=== PATIENT | female | born 1965 | race Caucasian/White ===

== ENCOUNTER → 2021-09-06 11:15 | Outpatient (BNVA) | payer MEDICARE, SELFPAY | PROVIDERS: Visit Provider Nurse Practitioner Family | DX: R07.9 Chest pain, unspecified (principal); H00.019 Hordeolum externum unspecified eye, unspecified eyelid; F17.200 Nicotine dependence, unspecified, uncomplicated | CPT/HCPCS: 80053; 84484; 85025; 87635 ==

== ENCOUNTER 2021-10-21 07:38 | Emergency (ER) | payer MEDICARE, SELFPAY ==
[2021-10-21 07:49] VITALS: BP 132/97; PULSE 82; RESP 16; TEMP 36.9; O2SAT 96; BMI 20.2
--- NOTE | 2021-10-21 07:52 | ECG_ITS ---
[facility] Test Date: 2021-10-21 Pat Name: Nan Harris Department: Room: Gender: Female Director Of Rooms: : 1965 Requested By: Ahsan Schmidt Order Number: [id number] Jarad MD: Jasbir Gonzáles M.D. Measurements Intervals Davidson Rate: P: PA: QRS: QRSD: T: QT: QTc: Interpretive Statements Sinus rhythm Right ventricular conduction delay Poor R wave progression ATYPICAL ECG WARNING: DATA QUALITY MAY AFFECT INTERPRETATION No previous ECG available for comparison Electronically Signed On 10-21-2021 8:46:05 CDT by Jasbir Gonzáles M.D. [id number]
--- NOTE | 2021-10-21 07:52 | XRR_ITS ---
PROCEDURE INFORMATION: Exam: XR Chest Exam date and time: 10/21/2021 7:59 AM Age: 56 years old Clinical indication: Injury or trauma; Fall; Blunt trauma (contusions or hematomas); Additional info: Syncope TECHNIQUE: Imaging protocol: Radiologic exam of the chest. Views: 1 view. COMPARISON: No relevant prior studies available. FINDINGS: Lungs: No focal airspace disease. Pleural spaces: Unremarkable. No pleural effusion. No pneumothorax. Heart/Mediastinum: Cardiomediastinal silhouette is within normal limits. Bones/joints: Unremarkable. XR/XR chest 1V portable [id number] IMPRESSION: No acute cardiopulmonary abnormality.
--- NOTE | 2021-10-21 07:58 | W.ED.FALL ---
HPI - Fall General: Chief Complaint: Fall Stated Complaint: passing out episode, neck & shoulder pain Time Seen by Provider: 10/21/21 07:44 Source: patient Mode of arrival: ambulatory Limitations: no limitations History of Present Illness: 56-year-old female presents emergency room complaining of falling. She fell last night she unsure exactly what happened she was confused when she first woke up she complaining of neck pain as well as pain in her right shoulder and head she had episode of nausea vomiting due to the pain. She did come here yesterday but evidently had a significant panic attack and up leaving without being seen. She has a history of seizures she stopped taking all her seizure medications due to side effects. He denies any alcohol use. MD complaint: fall Fall from: standing Fall witnessed: no Place fall occurred: home Loss of consciousness: Yes Prolonged down time: unclear Symptoms prior to fall: none Location of injury: neck Location of injury - extremities: Right: shoulder Severity: moderate Quality: sharp Associated symptoms-after fall: Denies abdominal pain, chest pain, confusion, difficulty walking, headache(s), hematuria, lightheadedness, neck pain, numbness, short of breath, vertigo, weakness or other Review of Systems Const: Denies: fever(s), chills, body aches, change in appetite, fatigue or malaise ENMT: Denies: throat pain, ear or mastoid pain, nasal discharge or nasal congestion Card: Denies: chest pain, palpitations or lightheadedness Resp: Denies: dyspnea, productive cough or non-productive cough GI: Denies: abdominal pain, nausea or vomiting : Denies: hematuria Musc: Reports: joint pain; Denies: neck pain Skin/Breast: Denies: rash or pruritus Neuro: Denies: headache(s), difficulty walking, vertigo or confusion PFSH ED PFSH: Medical History (Updated 10/21/21 @ 16:29 by Ahsan Valverde DO) Seizure Surgical History Hx of appendectomy Hx of brain surgery Hx of knee surgery right knee Social History Smoking and tobacco status: current every day smoker Second hand smoke exposure: No Smoking risk assessment/counseling performed?: Yes Alcohol intake: never Desire information about alcohol rehabilitation?: No Counseling given: No Desire information about substance/drug rehabilitation?: No Counseling given: No Adopted: No Caregiver/support person: No Lives independently: Yes Household members: none Housing: House Marital status: Single Number of children: 2 Highest education level completed: Some College, No Degree service: No Current occupational status: employed History of recent travel: No Physical Exam Const: COMMON NORMALS: no acute distress GENERAL APPEARANCE: cooperative and comfortable ORIENTATION/CONSCIOUSNESS: Yes awake, Yes oriented to person, Yes oriented to place and Yes oriented to time HENMT: COMMON NORMALS: normocephalic, atraumatic and hearing grossly normal bilaterally HEAD & SCALP: normocephalic and atraumatic Neck/C-Spine: COMMON NORMALS: no JVD Resp: COMMON NORMALS: normal respiratory effort, No retractions, No use of accessory muscles and clear to auscultation bilaterally AUSCULTATION: clear to auscultation bilaterally Cardio: COMMON NORMALS: no JVD, regular rate, regular rhythm and No murmurs present (Cardio) RATE: regular rate RHYTHM: regular rhythm GI: COMMON NORMALS: Soft to palpation and No hepatosplenomegaly present AUSCULTATION: Yes normoactive bowel sounds PALPATION: Yes Soft to palpation, No Tenderness to palpation present (GI), No Guarding due to palpation present (GI) and Yes No hepatosplenomegaly present Extremity: COMMON NORMALS: normal to inspection, capillary refill normal, no clubbing, cyanosis or edema, no calf tenderness and no pedal edema Neuro: SENSORIUM/ORIENTATION: Yes oriented to person, Yes oriented to place and Yes oriented to time Skin: COMMON NORMALS: no rashes or lesions noted GENERAL SKIN EXAM: no rashes or lesions noted Course Vital Signs: Vital signs: Vital Signs Temperature 98.5 F 10/21/21 07:49 Pulse Rate 80 10/21/21 10:29 Respiratory Rate 15 10/21/21 08:24 Blood Pressure 139/76 10/21/21 10:29 Pulse Oximetry 97 10/21/21 10:29 MDM - Fall Medical Decision Making Patient has a right distal clavicle clavicle fracture I also suspect she may have had a seizure CPK is up she did not sound like she did prolonged downtime and immediately after she was somewhat confused I like to start her on Keppra. Sis concerned she had side effects from previous antiseizure medications does not want to start anything. She will be scheduled for Ortho for follow-up of the clavicle fracture, and the sleep deprived EEG and then follow-up with neurology return if has further problems. Medical Records I reviewed the patient's medical records. Lab Data I reviewed the patient's lab results. : 10/21/21 08:38 10/21/21 08:38 Radiology Impressions Chest X-Ray 10/21/21 07:52 IMPRESSION: No acute cardiopulmonary abnormality. Cervical Spine X-Ray 10/21/21 07:59 IMPRESSION: 1. No acute osseous findings. 2. Moderate to advanced degenerative disc disease in the mid to lower cervical spine. Shoulder X-Ray 10/21/21 07:59 IMPRESSION: Acute nondisplaced fracture of the distal right clavicle corresponding to the region of the coracoclavicular ligament. Cervical Spine CT 10/21/21 08:24 IMPRESSION: 1. No acute fracture or malalignment. 2. Degenerative changes as detailed above. Laboratory Results WBC 9.1 10^3/uL (4.0-10.0) 10/21/21 08:38 RBC 5.03 10^6/uL (4.1-5.3) 10/21/21 08:38 Hgb 15.3 g/dL (11.5-15.3) 10/21/21 08:38 Hct 45.1 % (37.0-47.0) 10/21/21 08:38 MCV 89.7 fl (81-99) 10/21/21 08:38 MCH 30.4 pg (28.0-34.0) 10/21/21 08:38 MCHC 33.9 g/dL (30.0-36.0) 10/21/21 08:38 RDW 13.1 % (12.1-15.1) 10/21/21 08:38 Plt Count 168 10^3/cmm (130-400) 10/21/21 08:38 MPV 12.4 fL (7.4-10.4) H 10/21/21 08:38 Neut % (Auto) 76.4 % 10/21/21 08:38 Lymph % (Auto) 15.5 % 10/21/21 08:38 [place] % (Auto) 5.7 % 10/21/21 08:38 Eos % (Auto) 0.9 % 10/21/21 08:38 Baso % (Auto) 1.1 % 10/21/21 08:38 Neut # (Auto) 6.95 10^3/uL (1.8-7.7) 10/21/21 08:38 Lymph # (Auto) 1.4 10^3/uL (0.8-4.8) 10/21/21 08:38 [place] # (Auto) 0.5 10^3/uL (0.2-0.9) 10/21/21 08:38 Eos # (Auto) 0.1 10^3/uL (0.0-0.8) 10/21/21 08:38 Baso # (Auto) 0.1 10^3/uL (0.0-0.1) 10/21/21 08:38 Nucleated RBC % (auto) 0 % 10/21/21 08:38 Nucleated RBCs # 0.0 /100WBC 10/21/21 08:38 Sodium 139 mmol/L (136-145) 10/21/21 08:38 Potassium 4.0 mmol/L (3.5-5.1) 10/21/21 08:38 Chloride 100 mmol/L (98-107) 10/21/21 08:38 Carbon Dioxide 25 mmol/L (22-29) 10/21/21 08:38 Anion Gap 18.0 (5-19) 10/21/21 08:38 BUN 9 mg/dL (6-20) 10/21/21 08:38 Creatinine 0.6 mg/dL (0.5-0.9) 10/21/21 08:38 GFR Calculation 103.4 mL/min (90-130) 10/21/21 08:38 Glucose 93 mg/dL (65-115) 10/21/21 08:38 Calculated Osmolality 286 mOsm/kg (285-295) 10/21/21 08:38 Calcium 9.2 mg/dL (8.5-10.5) 10/21/21 08:38 Total Bilirubin 0.3 mg/dL (0.15-1.2) 10/21/21 08:38 AST 26 U/L (0-32) 10/21/21 08:38 ALT 13 U/L (0-33) 10/21/21 08:38 Alkaline Phosphatase 104 IU/L (35-105) 10/21/21 08:38 Creatine Kinase 478 U/L (26-192) H* 10/21/21 08:38 CK-MB (CK-2) 9.0 ng/mL (0-5.34) H 10/21/21 08:38 CK-MB (CK-2) Rel Index 1.8 % (0.0-10.4) 10/21/21 08:38 Troponin T Baseline 6 ng/L (0-10) 10/21/21 08:38 Troponin T 120 Minute 6.00 ng/L (0-10) 10/21/21 09:56 Delta Troponin T 0 ABS# (0-10) 10/21/21 09:56 Total Protein 7.4 g/dL (6.6-8.7) 10/21/21 08:38 Albumin 4.7 g/dL (3.5-5.2) 10/21/21 08:38 Globulin 2.7 g/dL (1.3-4.6) 10/21/21 08:38 Urine Color Yellow (Yellow) 10/21/21 09:12 Urine Appearance Clear (CLEAR) 10/21/21 09:12 Urine pH 6 (5-7) 10/21/21 09:12 Ur Specific [place] 1.020 (1.005-1.030) 10/21/21 09:12 Urine Protein Neg (Negative) 10/21/21 09:12 Urine Glucose (UA) Norm (Normal) 10/21/21 09:12 Urine Ketones Negative (Negative) 10/21/21 09:12 Urine Blood 2+ (Negative) H 10/21/21 09:12 Urine Nitrate Negative (Negative) 10/21/21 09:12 Urine Bilirubin Neg (Negative) 10/21/21 09:12 Urine Urobilinogen Norm mg/dL (Negative) 10/21/21 09:12 Ur Leukocyte Esterase 1+ (Negative) H 10/21/21 09:12 Urine RBC 0-4 /hpf (0-2) H 10/21/21 09:12 Urine WBC 0-4 /hpf (0-5) H 10/21/21 09:12 Ur Squamous Epith Cells 0-4 /hpf (0-5) H 10/21/21 09:12 Amorphous Sediment Not Reportable 10/21/21 09:12 Urine Bacteria Trace /hpf (NONE) 10/21/21 09:12 Discharge Plan Discharge Patient Disposition: Home Clinical Impression: Right clavicle fracture, Seizure, History of closed head injury Condition: Stable Prescriptions: New hydrocodone-acetaminophen 5-325 mg tablet 1 tab PO Q6H PRN (Reason: pain) Qty: 10 0RF No Action cyclobenzaprine 10 mg tablet 10 mg PO TID PRN (Reason: muscle spasm) Qty: 9 0RF prednisone 20 mg tablet 20 mg PO BID Qty: 6 0RF erythromycin 5 mg/gram (0.5 %) ointment 0.5 inch ophthalmic (eye) TID Qty: 1 0RF nitroglycerin 0.4 mg tablet, sublingual 0.4 mg sublingual Q5M PRN (Reason: chest pain) Qty: 30 2RF Rx Instructions: do not exceed 3 doses per episode Discharge Orders: Discharge ED (Routine); Ordered 10/21/21 Ordered By: Ahsan Valverde Referrals: Vazquez Olmedo, [facility] [Primary Care Provider] - Discharge Activity: Increase activity as tolerated Patient Instructions: Opioid Safety Activity Restrictions/Additional Instructions: No use of the right arm use the sling until released by orthopedics. liquor establishment manager will make arrangements for you to have an outpatient sleep deprived EEG as well as consultation with orthopedics and neurology. Return to the emergency room if you have any further problems or recurrent seizures. Coding Level of Care Code ED Intermediate Frame Tender for Rafal Butcher
--- NOTE | 2021-10-21 07:59 | XRR_ITS ---
PROCEDURE INFORMATION: Exam: XR Right Shoulder Exam date and time: 10/21/2021 8:04 AM Age: 56 years old Clinical indication: Injury or trauma; Fall; Blunt trauma (contusions or hematomas); Shoulder; Right TECHNIQUE: Imaging protocol: Radiologic exam of the Right shoulder. Views: 2 or more views. COMPARISON: CR XR chest 1V portable [id number] 10/21/2021 7:59 AM FINDINGS: Bones/joints: Acute nondisplaced fracture of the distal right clavicle corresponding to the region of the coracoclavicular ligament. The acromioclavicular and coracoclavicular intervals are maintained. Mild acromioclavicular and glenohumeral joint degenerative changes. Osteopenia. Soft tissues: Normal. XR/XR shoulder RT min 2V* [id number] IMPRESSION: Acute nondisplaced fracture of the distal right clavicle corresponding to the region of the coracoclavicular ligament.
--- NOTE | 2021-10-21 07:59 | XRR_ITS ---
PROCEDURE INFORMATION: Exam: XR Cervical Spine Exam date and time: 10/21/2021 8:04 AM Age: 56 years old Clinical indication: Injury or trauma; Fall; Blunt trauma TECHNIQUE: Imaging protocol: Radiologic exam of the cervical spine. Views: 2 or 3 views. COMPARISON: CR XR chest 1V portable [id number] 10/21/2021 7:59 AM FINDINGS: Bones/joints: No acute fracture is visualized. Moderate to advanced degenerative disc disease at C3-C4, C4-C5 and C5-C6. Trace anterolisthesis of C2 on C3 is favored degenerative. Trace retrolisthesis of C4 on C5 is also favored degenerative. Soft tissues: Unremarkable. XR/XR cervical spine 3V* [id number] IMPRESSION: 1. No acute osseous findings. 2. Moderate to advanced degenerative disc disease in the mid to lower cervical spine.
[2021-10-21 08:24] VITALS: BP 133/79; PULSE 79; RESP 15; O2SAT 97
--- NOTE | 2021-10-21 08:24 | CTR_ITS ---
PROCEDURE INFORMATION: Exam: CT Cervical Spine Without Contrast Exam date and time: 10/21/2021 8:43 AM Age: 56 years old Clinical indication: Injury or trauma; Fall; Blunt trauma; Additional info: Abnormal cervical spine xray after fall TECHNIQUE: Imaging protocol: Computed tomography of the cervical spine without contrast. Radiation optimization: All CT scans at this facility use at least one of these dose optimization techniques: automated exposure control; mA and/or kV adjustment per patient size (includes targeted exams where dose is matched to clinical indication); or iterative reconstruction. COMPARISON: CR XR cervical spine 3V* [id number] 10/21/2021 8:04 AM RADIATION DOSE METRICS: Total DLP (mGy-cm): 395.33 FINDINGS: Bones/joints: No acute fracture. Normal alignment. Discs/Spinal canal/Neural foramina: Uncovertebral spurring and facet hypertrophy contribute to severe neural foraminal stenosis at C4-C5 bilaterally, C5-C6 on the right, and C6-C7 bilaterally. There is at least mild spinal canal stenosis at C3-C4, C4-C5, C5-C6 and C6-C7. Lungs: Lung apices are normal. Soft tissues: Unremarkable. CT/CT cervical spin wo con* [id number] IMPRESSION: 1. No acute fracture or malalignment. 2. Degenerative changes as detailed above.
[2021-10-21 08:43] LABS: Basophils # 0.1 10^3/uL (0.0-0.1); Basophils % 1.1 %; Eosinophils # 0.1 10^3/uL (0.0-0.8); Eosinophils % 0.9 %; Hematocrit 45.1 % (37.0-47.0); Hemoglobin 15.3 g/dL (11.5-15.3); Lymphocytes # 1.4 10^3/uL (0.8-4.8); Lymphocytes % 15.5 %; Mean Corpuscular HGB Conc 33.9 g/dL (30.0-36.0); Mean Corpuscular Hemoglobin 30.4 pg (28.0-34.0); Mean Corpuscular Volume 89.7 fl (81-99); Mean Platelet Volume 12.4 fL (7.4-10.4); Monocytes # 0.5 10^3/uL (0.2-0.9); Monocytes % 5.7 %; Neutrophils # 6.95 10^3/uL (1.8-7.7); Neutrophils % 76.4 %; Nucleated Red Blood Cells % 0 %; Platelet Count 168 10^3/cmm (130-400); Red Blood Count 5.03 10^6/uL (4.1-5.3); Red Cell Distribution Width 13.1 % (12.1-15.1); White Blood Count 9.1 10^3/uL (4.0-10.0)
[2021-10-21 09:00] VITALS: BP 123/70; PULSE 75; O2SAT 95
[2021-10-21 09:01] LABS: Troponin(5th) Baseline 6 ng/L (0-10)
[2021-10-21 09:02] LABS: Alanine Aminotransferase 13 U/L (0-33); Albumin Level 4.7 g/dL (3.5-5.2); Alkaline Phosphatase 104 IU/L (35-105); Aspartate Amino Transferase 26 U/L (0-32); Blood Urea Nitrogen 9 mg/dL (6-20); Calcium 9.2 mg/dL (8.5-10.5); Carbon Dioxide 25 mmol/L (22-29); Chloride 100 mmol/L (98-107); Creatinine Clr Calc Pharmacy 93.1096; Globulin 2.7 g/dL (1.3-4.6); Glomerular Filtration Rate 103.4 mL/min (90-130); Glucose 93 mg/dL (65-115); Osmolality Calculated 286 mOsm/kg (285-295); Sodium 139 mmol/L (136-145); Total Bilirubin 0.3 mg/dL (0.15-1.2); Total Protein 7.4 g/dL (6.6-8.7)
[2021-10-21 09:04] LABS: Creatine Phosphokinase 478 U/L (26-192)
[2021-10-21 09:26] LABS: CKMB Relative Index 1.8 % (0.0-10.4)
[2021-10-21 09:38] LABS: Urine Appearance Clear (CLEAR); Urine Color Yellow (Yellow)
[2021-10-21 09:39] LABS: Add Urine Culture? No; Add Urine Microscopic? YES; Bacteria Urine TRACE /hpf; Bilirubin Urine Neg (Negative); Blood Urine 2+ (Negative); Glucose Urine UA Norm (Normal); Ketones Urine Negative (Negative); Leukocyte Esterase Urine 1+ (Negative); Nitrate Urine Negative (Negative); Protein Urine Neg (Negative); RBC Urine 0-4 /hpf (0-2); Squamous Epithelial Cell Urine 0-4 /hpf (0-5); Urobilinogen Urine Norm (Negative); WBC Urine 0-4 /hpf (0-5); pH Urine 6 (5-7)
[2021-10-21] MEDS: promethazine 25 mg/mL SDV 1 mL IM (10:00)
[2021-10-21 10:29] VITALS: BP 139/76; PULSE 80; O2SAT 97
[2021-10-21 10:32] LABS: Troponin 5 2HR Delta 0 ABS# (0-10)
--- NOTE | 2021-10-22 14:17 | DCPLANNER ---
Addendum entered by Edwige Arcos 11/10/21 16:03: Patient had a follow up appointment scheduled for 10.25.21 with Marty Ch at ortho - patient did attend appointment. Original Note: manager pacu had message to schedule a follow up appointment for patient with ortho. manager pacu sent patients information to the front office staff at ortho. Patients information will be printed and reviewed. Clinic will call patient with appointment information.
--- NOTE | 2021-10-22 14:20 | DCPLANNER ---
Addendum entered by Edwige Arcos 12/10/21 12:51: Patient had a follow up appointment scheduled for 11.26.21 with neurology - patient did not attend appointment. Patient had an EEG scheduled for 11.11.21 - patient did not attend appointment. Addendum entered by Edwige Arcos 11/10/21 16:04: Patient has a follow up appointment scheduled for Thursday November 11, 2021 at 10:30 for an outpatient EEG. Clinic will notify patient with appointment information. Patient has a follow up appointment scheduled for Thursday November 25, 2021 at 10:[address] Rosa. Clinic will notify patient about appointment. Original Note: keno manager had message to schedule a follow up appointment for patient with neurology. keno manager sent patients information to the front office staff at neurology. Patients information will be printed and reviewed. Clinic will call patient with appointment information. keno manager also had message to schedule an outpatient sleep deprived EEG, case packer faxed a signed order to neurology. The neurology clinic will call patient with appointment information.
== END 2021-10-21 10:27 | disposition home or self-care (01) ==
PROVIDERS: Emergency Provider Family Medicine; PCP Nurse Practitioner
DX: S42.001A Fracture of unspecified part of right clavicle, initial encounter for closed fracture (principal); R56.9 Unspecified convulsions; Z87.828 Personal history of other (healed) physical injury and trauma; F17.210 Nicotine dependence, cigarettes, uncomplicated; W19.XXXA Unspecified fall, initial encounter
CPT/HCPCS: 36415; 71045; 72040; 72125; 73030; 80053; 81001; 82550; 82553; 84484; 85025; 93005; 96372; 99285; J2550

== ENCOUNTER → 2021-10-25 10:50 | Outpatient (BNVA) | payer MEDICARE, SELFPAY | PROVIDERS: PCP Nurse Practitioner; Referring Provider Family Medicine; Visit Provider Nurse Practitioner Family | DX: S42.034A Nondisplaced fracture of lateral end of right clavicle, initial encounter for closed fracture (principal); W19.XXXA Unspecified fall, initial encounter | CPT/HCPCS: 99214 ==